=== PATIENT | female | born 1955 | race Caucasian/White ===

== ENCOUNTER 2018-03-13 09:55 | Emergency (ER) | payer BC ==
--- NOTE | 2018-03-13 12:23 | RAD ---
LEFT FOOT THREE VIEWS: History: Left foot pain. Remote injury. FINDINGS: Lisfranc joint alignment is anatomic. Plantar arch is maintained. Very mild osteophytosis. No acute f racture, dislocation, or aggressive osseous erosions. IMPRESSION: No acute osseous abnormalities are demonstrated. POS: KRAIG
== END 2018-03-13 12:31 | disposition home or self-care (01) ==
LOC: ERS 09:55
DX: L03.116 Cellulitis of left lower limb (principal); I10 Essential (primary) hypertension; E03.9 Hypothyroidism, unspecified; E11.9 Type 2 diabetes mellitus without complications

== ENCOUNTER 2020-11-24 20:04 | Emergency (ER) | payer MEDICARE ==
[2020-11-24 20:51] LABS: #Basophils 0.1 thou/uL (0.0-0.2); #Eosinphils 0.1 thou/uL (0.0-0.7); #Lymphocytes 2.7 thou/uL (1.20-3.40); #Monocytes 0.8 thou/uL (0.11-0.59); #Neutrophils 10.4 thou/uL (1.40-6.50); %Basophils 0.4 % (0.0-1.0); %Eosinophils 0.9 % (0.0-10.0); %Monocytes 5.9 % (0.0-10.0); %Neutrophils 73.9 % (42.0-75.0); Hemoglobin 12.7 g/dL (12.0-16.0); Mean Corpuscular Hemoglobin 29.5 pg (27.0-31.0); Mean Corpuscular Volume 89.6 fL (78.0-98.0); Mean Platelet Volume 8.1 fL (7.4-10.4); Platelet Count 309 thou/uL (130-400); RBC Distribution Width 11.8 % (11.5-14.5); White Blood Cell (WBC) Count 14.1 thou/uL (4.8-10.8)
[2020-11-24 21:09] LABS: ALT (SGPT) 41 U/L (8-55); AST (SGOT) 32 U/L (5-34); Albumin 3.7 g/dL (3.4-4.8); Alkaline Phosphatase 103 U/L (40-110); Anion Gap 16 mmol/L (10-20); BUN (Urea Nitrogen) 15 mg/dL (9.8-20.1); Bilirubin, Total 0.4 mg/dL (0.2-1.2); Calc. Creatinine Clearance 0 mL/min (70-130); Calcium 8.7 mg/dL (7.8-10.44); Carbon Dioxide 23 mmol/L (23-31); Chloride 101 mmol/L (98-107); Globulin 2.5 g/dL (2.4-3.5); Glucose 339 mg/dL (80-115); Lipase 101 U/L (8-78); Potassium 4.8 mmol/L (3.5-5.1); Protein, Total 6.2 g/dL (6.0-8.3); Sodium 135 mmol/L (136-145)
[2020-11-24] MEDS ORDERED: Ondansetron PF 4 MG/2 ML Vial ONE (21:13)
--- NOTE | 2020-11-24 21:35 | RAD ---
Exam: Lumbar spine 3 views HISTORY: Right lower back pain that began this evening while cooking dinner. FINDINGS: 5 lumbar type vertebra. Lumbar spine vertebral body height maintained. No fracture. Mild lo ss of disc space height and osteophyte formation at the distal thoracic spine. Mild facet arthropathy at L4-L5 and L5-S1. 4 mm of anterolisthesis of L4 upon L5. Disc space heights are preserved throughout the lumbar spine. Minimal atherosclerosis. Visualized sacrum and bony pelvis are intact. IMPRESSION: Mild degenerative changes of the lumbar spine as described above.
[2020-11-24 23:07] LABS: Bilirubin Negative (Negative); Blood, Urine Negative (Negative); Clarity Turbid (Clear); Glucose, Urine (Dipstick) 500 mg/dL (Negative); Ketone, Urine 40 mg/dL (Negative); Leukocyte Negative Leu/uL (Negative); Nitrite Negative (Negative); Protein, Urine (Dipstick) 20 mg/dL (Neg-Trace); Specific Gravity, Urine 1.029 (1.002-1.036); Urobilinogen Normal mg/dL (Less than 2); pH, Urine 5.5 (5.0-9.0)
[2020-11-25] MEDS ORDERED: Fentanyl 100 MCG/2 ML VIAL ONE (00:22)
== END 2020-11-25 00:53 | disposition home or self-care (01) ==
LOC: ERS 20:04
DX: M62.830 Muscle spasm of back (principal); E11.9 Type 2 diabetes mellitus without complications; I10 Essential (primary) hypertension; E03.9 Hypothyroidism, unspecified
CPT/HCPCS: 36415; 51701; 72100; 80053; 81003; 83690; 85025; 87086; 96374; 96375; J2405; J3010